=== PATIENT | female | born 1975 | race Caucasian/White ===

== ENCOUNTER 2016-10-13 08:39 | Day surgery (SDC) | payer MEDICARE, MEDICAID ==
--- NOTE | 2016-10-13 07:53 | History and Physical Report ---
DATE OF EVALUATION: 10/12/2016. CHIEF COMPLAINT AND HISTORY OF CHIEF COMPLAINT: This patient presents with a history of multiple sclerosis and intractable radiculitis. She is here for an implanted spinal catheter infusion trial with hydromorphone. The patient's disease process is currently being managed by Neurology through muscle relaxants other than baclofen. Because of the significant pain pattern into the lower extremities, it was felt appropriate to evaluate the patient for a spinal infusion device with an opioid. This was discussed at some length with the patient, and the potential risks, side effects, and complications were carefully reviewed. These include nerve root injury, spinal cord injury, and spinal headache. Information from the funeral workers was also provided which carefully outlines and reviews the side effects. She has been contacted by the local customer relations representative of the company with all of the potential risks and side effects discussed. PAST MEDICAL HISTORY: Multiple sclerosis, cardiac arrhythmia, asthmatic bronchitis, reflux, difficulty sleeping. REVIEW OF SYSTEMS: The patient seems appropriate and in no acute distress. The remainder of the systems review shows [] SOCIAL HISTORY: Caffeine. FAMILY HISTORY: Asthma, cancer, cerebrovascular disease. ALLERGIES: Penicillin, iodine, shellfish, Latex, Keflex, morphine, baclofen, Demerol. MEDICATIONS ON ADMISSION: Oral Valium. PHYSICAL EXAMINATION: General: Height is 5 feet, 4 inches. Weight is 130 pounds. Vital Signs: Blood pressure is 120/80. Musculoskeletal: Examination seems to show diffuse pain throughout the mid to low back and extending into the extremities, right greater than left. Ambulation: Assistive device utilized. Neurologic: Cranial nerves are intact. IMPRESSIONS: 1. INTRACTABLE LUMBAR RADICULITIS, ICD10 CODE M54.16 AND M54.17. 2. MULTIPLE SCLEROSIS, ICD10 CODE G35.0. PLANS: As explained carefully to the patient, the ideal approach would be the spinal infusion of baclofen to control the symptoms of the multiple sclerosis. However, because of her allergy, this is being managed by oral medications through her neurologist. The attempt and the use of the opioid is not to manage the obvious symptoms from multiple sclerosis, but rather to help control pain. This has been carefully discussed with the patient and will be reviewed again before she goes into surgery. The intent here is to control pain, not multiple sclerosis. The implanted catheter trial will give us the opportunity to evaluate this. If unsuccessful, the trial catheter will be removed. If it is successful and helps manage her pain, then she will be evaluated through the trial period of two weeks for a full implant. She understands the potential risks, side effects, and complications and is ready to move forward. Will consider this a possible overnight stay. Que Burkett D.O. Date Time JOB NUMBER: [id number] cc: Shon Ames Dr.
[~2016-10-13 08:39] MED LIST: ACETAMINOPHEN 1000MG/100 ML PREMIX IV ONE; CLINDAMYCIN 600MG/50ML PREMIX 50 ML IVPB ONE; FAMOTIDINE 20MG TABLET PO ONE; HYDROMORPHONE PF 2MG/ML AMP 0.004 MG in 0.9 % SODIUM CHLORIDE 10ML VIA 0.998 ML IV ONE; HYDROMORPHONE PF 2MG/ML AMP 2 MG in 0.9 % SODIUM CHLORIDE 500ML 499 ML IV ONE; MECLIZINE 25 MG TABLET PO ONE; METOCLOPRAMIDE 10 MG TABLET PO ONE
[2016-10-13] MEDS ORDERED: DIPHENHYDRAMINE HCL 25 MG CAPSULE PO PRN ×2 (11:31)
[2016-10-13] MEDS ORDERED: HYDROMORPHONE HCL 2 MG/ML VIAL IM PRN (11:31)
[2016-10-13] MEDS ORDERED: AL HYDROX/MAG HYDROX 30ML UD PO PRN (11:31)
[2016-10-13] MEDS ORDERED: HYDROCODONE/APAP 7.5/325MG TABLET PO PRN ×2 (11:31)
[2016-10-13] MEDS ORDERED: METOCLOPRAMIDE 10 MG TABLET PO PRN (11:31)
[2016-10-13] MEDS ORDERED: NALOXONE 0.4 MG/1 ML VIAL IVP PRN (11:31)
[2016-10-13] MEDS ORDERED: TEMAZEPAM 15 MG CAPSULE PO PRN ×2 (11:31)
[2016-10-13] MEDS ORDERED: HYDROMORPHONE HCL 1 MG/ML CPJ IM PRN (11:31)
[2016-10-13] MEDS ORDERED: DIPHENHYDRAMINE HCL IV 50 MG/ML VIAL IVP PRN ×2 (11:31)
[2016-10-13] MEDS ORDERED: ACETAMINOPHEN 325 MG TAB PO PRN ×2 (11:31)
[2016-10-13] MEDS ORDERED: OXYCODONE/APAP 10MG-325MG TABLET PO PRN ×2 (11:31)
[2016-10-13] MEDS ORDERED: SENNOSIDES/DOCUSATE SODIUM UD CAPSULE PO PRN ×2 (11:31)
[2016-10-13] MEDS: RINGERS SOLUTION,LACTATED 1,000 ML IV SCH ×2 (12:43→22:02)
[2016-10-13] MEDS ORDERED: BUPIVACAINE 0.5% W/EPI MPF 30 ML VIAL IVP ONE (13:26)
[2016-10-13] MEDS ORDERED: LIDOCAINE 1% W/EPI 1:200,000 MPF 30ML SQ ONE (13:26)
[2016-10-13] MEDS ORDERED: CLINDAMYCIN 600MG/4 ML VIAL IV ONE (13:26)
[2016-10-13] MEDS ORDERED: DIAZEPAM 5 MG TABLET PO PRN (16:00)
[2016-10-13] MEDS ORDERED: *PACU ONLY* KETAMINE HCL 10 MG/ML (20ML) VIAL IV ONE (16:12)
[2016-10-13] MEDS ORDERED: DEXAMETHASONE 4 MG/ML 1ML VIAL IVP ONE (16:12)
[2016-10-13] MEDS ORDERED: DEXMEDETOMIDINE HCL 200 MCG/2 ML VIAL IV ONE (16:12)
[2016-10-13] MEDS ORDERED: FENTANYL PF 100MCG/2ML VIAL IV ONE (16:12)
[2016-10-13] MEDS ORDERED: MIDAZOLAM HCL 2MG/2ML VIAL IV ONE (16:12)
[2016-10-13] MEDS: GABAPENTIN 800 MG PO SCH (16:16)
[2016-10-13] MEDS: CLINDAMYCIN 600MG/50ML PREMIX 50 ML IVPB SCH (17:44)
[2016-10-13] MEDS: PRELIEF PO SCH (17:46)
[2016-10-13] MEDS ORDERED: RINGERS SOLUTION,LACTATED 1,000 ML IV PRN (21:00)
[2016-10-13] MEDS ORDERED: PATIENT OWN MED: MONTELUKAST 10 MG PO SCH (22:00)
[2016-10-13] MEDS ORDERED: FLOVENT 110 MCG INH SCH (22:00)
[2016-10-14] MEDS: GABAPENTIN 800 MG PO SCH ×2 (00:12→06:23)
[2016-10-14] MEDS: CLINDAMYCIN 600MG/50ML PREMIX 50 ML IVPB SCH ×2 (00:59→08:57)
[2016-10-14] MEDS: RINGERS SOLUTION,LACTATED 1,000 ML IV SCH ×2 (01:00→06:22)
[2016-10-14] MEDS: METOCLOPRAMIDE HCL 10 MG/2 ML VIAL IVP PRN ×2 (02:07→03:37)
[2016-10-14] MEDS ORDERED: PATIENT OWN MED: ESOMEPRAZOLE 40 MG PO SCH (07:00)
[2016-10-14] MEDS: PRELIEF PO SCH (08:58)
[2016-10-14] MEDS ORDERED: TAMSULOSIN HCL 0.4 MG CAP.ER.24H PO SCH (10:00)
[2016-10-14] MEDS ORDERED: METOPROLOL SUCC 50 MG TABLET PO SCH (10:00)
--- NOTE | 2016-10-15 16:47 | Operative Note - Ferro ---
DATE OF SURGERY: 10/13/16 PREOPERATIVE DIAGNOSES: 1. INTRACTABLE LUMBAR RADICULITIS, ICD-10 CODE = M54.16 AND M54.17. 2. MULTIPLE SCLEROSIS, ICD-10 CODE = G35.0. OPERATION: 1. FLUOROSCOPICALLY-GUIDED SPINAL ACCESS AT L2/3, PLACEMENT OF THIN-WALLED SPINAL CATHETER T12/L1. 2. DIAGNOSTIC MYELOGRAPHY WITH RADIOLOGIC SUPERVISION AND INTERPRETATION. 3. SPINAL OPIOID BOLUS HYDROMORPHONE 0.002 MG SPINAL SPACE. 4. INCISION, SUBCUTANEOUS DISSECTION, AND ANCHORING OF SPINAL CATHETER TO SUPRASPINOUS FASCIA USING ANCHORING DEVICE AND NONABSORBABLE SUTURE. 5. INCISION, SUBCUTANEOUS DISSECTION, AND CREATION OF A SUBCUTANEOUS POUCH, RIGHT POSTERIOR GLUTEAL MARGIN. 6. TUNNELING BETWEEN MIDLINE POUCH TO POSTERIOR POUCH TUNNELING SPINAL CATHETER EXITING INTO POSTERIOR GLUTEAL POUCH. 7. RESECT AND INTERFACE SPINAL CATHETER TO SECONDARY CATHETER COMPONENT BY WAY OF CONNECTOR TUNNELING SECONDARY CATHETER COMPONENT 6 CM SUPERIOR EXITING SKIN. 8. INTERFACE EXTERNAL CATHETER WITH EXTERNAL PUMP SET TO DELIVER BY CONTINUOUS INFUSION OF HYDROMORPHONE AT 0.04 MG PER DAY. 9. CLOSURE OF MIDLINE INCISION, VICRYL FOR FASCIA, AND RUNNING SUBCUTICULAR VICRYL FOR SKIN. CLOSURE OF POSTERIOR GLUTEAL POUCH USING NYLON SUTURE. DRESSINGS PLACED SECURING CATHETER IN ALL CONNECTIONS UNDER STERILE DRESSING. 10. EPIDURAL BLOOD PATCH L3/4, 20 ML AUTOLOGOUS BLOOD DRAWN STERILE TECHNIQUE, LEFT ANTECUBITAL. SURGEON: FIORELLA CUTLER D.O. ANESTHESIA: LOCAL SEDATION. ANESTHESIA PROVIDER: LETY SALAS CRNA. INDICATION: This patient presents with a history of multiple sclerosis and neuropathic pain. She has been referred by Neurology for control of the neuropathic component. The neuromuscular component is being managed by other medications but because of allergies to Baclofen, this has been somewhat difficult. The intent is to gain some degree of pain control neuropathically to allow some improvement in her response to the other neuromuscular medications. The implanted catheter trial is in an attempt to minimize side-effects including spinal headache. The patient and understand the difference between the trial today for the pain component and not the MS component. PROCEDURE: Intravenous line, vital sign monitoring, IV sedation, prepped and draped in sterile technique. Patient position prone. Sterile technique and under imaging, the spinal interspace at L2/3 was marked, infiltrated, and a 20- gauge spinal needle beveled with a long axis in a paramedian approach into the spinal space. With CSF flow, a thin-walled spinal catheter was advanced and positioned T12/L1. Diagnostic myelography showed smooth linear flow of contrast throughout the spinal space. A bolus of Hydromorphone at 0.002 mg given in the spinal space. The catheter placement was atraumatic. There were no twitches or responses, which would indicate nerve root irritation. The catheter was clamped , the incision made, and subcutaneous dissection was conducted to the supraspinous fascia. The catheter was then anchored to the fascia with an anchoring device and nonabsorbable suture once the needle was removed. At the right posterior gluteal margin, or a site ultimately for the pump implant if this continues, skin infiltrated, incision made, and subcutaneous dissection was conducted to form a small subcutaneous pouch. A tunneling tool was then used to carry the external portion of the spinal catheter into the posterior pouch. This catheter was then interfaced with a second catheter component by way of a connector. The second catheter component was tunneled superior exiting the skin. The external catheter was then interfaced to an external pump set to deliver Hydromorphone at 0.04 mg a day. The midline incision was closed with Vicryl for fascia and running subcuticular Vicryl for skin. The posterior pouch incision was closed with nylon suture. Appropriate dressings were placed securing the catheter and all connections with sterile dressing. At L3/4, which is one level below the dural puncture, skin infiltrated and an 18-gauge Tuohy needle with [id number] was used to gain entry into the epidural space. Simultaneously, 20 mL of autologous blood drawn sterile technique from the left antecubital. This blood was passed onto the field maintaining sterility and an epidural blood patch was performed at this level with this blood. The dressings were reinforced. She was transported to the Recovery Room stable showing no side -effects from the procedure or the sedation. She was kept flat and will stay flat for four hours, slowly elevated for one. Because of the history and the amount of surgery, she will be kept overnight for observation and discharged in the morning. DISCHARGE INSTRUCTIONS IN THE MORNIN. The sites will remain clean and dry. No showering or bathing in any way that disrupts dressing. 2. Standard medications resumed limiting opioids to more fully evaluate the spinal infusion. 3. An antibiotic, Levaquin, 500 mg once a day for 14 days will be started and completed. Should there be problems with the antibiotic, she should contact the clinic for substitution. 4. Spinal opioid side-effects including; respiratory depression, nausea, vomiting, constipation, urinary retention, lightheadedness, or rash have all been discussed and reviewed. All other instructions provided, numbers to contact , problems given. She will be given a script for Percocet to help manage postoperative pain but will keep this at a minimum. FIORELLA CUTLER D.O. Date & Time cc: Dr. Keren Palacios JOB NUMBER: [id number] MTDD
--- NOTE | 2016-10-19 09:15 | RADIOLOGY REPORT ---
EXAM: AP THORACOLUMBAR SPINE HISTORY: PAIN PUMP TRIAL. TECHNIQUE: A single AP view of the thoracolumbar spine was obtained. Comparison: None. FINDINGS: There is some faint catheter like density overlying the right side of the abdomen and extending to the lumbar spine where it appears to ascend to the approximate level of the T12-L1 interspace as indicated by a tiny round metallic dot like density presumably demarcating the superior extent of the catheter. Prominent stool in the colon. Probable surgical clip right upper quadrant from cholecystectomy. Thoracolumbar curve to the right. IMPRESSION: SPINAL CATHETER IN PLACE EXTENDING UP TO THE APPROXIMATE LEVEL OF THE T12-L1 INTERSPACE. JOB NUMBER: [id number] MTDD
== END 2016-10-14 10:37 | disposition home or self-care (01) ==
LOC: SUR 08:39 → MEDSURG 11:43 → SUR 10-14 10:37
PROVIDERS: ATTEND Pain Medicine Interventional Pain Medicine
DX: M54.16 Radiculopathy, lumbar region (principal); M54.17 Radiculopathy, lumbosacral region; G35 Multiple sclerosis; I20.9 Angina pectoris, unspecified; J45.909 Unspecified asthma, uncomplicated
CPT/HCPCS: 36416; 82948; 72020; 94761; 94640; 94760; 93005; 62350; 00630; J3010; J3490; J1170; J1200; J2765; J7040; J7120

== ENCOUNTER 2016-10-27 11:12 | Day surgery (SDC) | payer MEDICARE, MEDICAID ==
--- NOTE | 2016-10-27 06:55 | History and Physical Report ---
DATE OF EVALUATION: 10/26/2016. CHIEF COMPLAINT AND HISTORY OF CHIEF COMPLAINT: This patient presents with a history of intractable lumbar radiculitis and multiple sclerosis. She had an implanted spinal catheter infusion trial performed with previous dictation on . PAST MEDICAL HISTORY: Unchanged. REVIEW OF SYSTEMS: Unchanged. SOCIAL HISTORY: Unchanged. FAMILY HISTORY: Unchanged. PAST SURGICAL HISTORY: Unchanged. ALLERGIES: Penicillin, iodine, shellfish, Latex, Keflex, morphine, baclofen, and Demerol. MEDICATIONS ON ADMISSION: Unchanged. PHYSICAL EXAMINATION: General: Height is 5 feet, 4 inches. Weight is 130 pounds. Vital Signs Previously: Blood pressure was 120/80. HEENT: Unchanged. Lungs: Unchanged. Heart: Unchanged. Abdomen: Unchanged. Musculoskeletal: The dressings for the implanted spinal catheter are in place. Ambulation: Unchanged. Neurologic: Unchanged. IMPRESSIONS: 1. INTRACTABLE LUMBAR RADICULITIS, ICD10 CODE M54.16 AND M54.17. 2. MULTIPLE SCLEROSIS, ICD10 CODE G35.0. PLANS: The patient is here with an implanted spinal catheter infusion trial ongoing with hydromorphone with up to 75 to 90% pain control. She is here by her request for implantation of a full system. All of the potential risks, side effects, and complications have been carefully reviewed and discussed. The patient understands and has consented. The procedure will be considered outpatient, although an overnight stay will be evaluated. Que Burkett D.O. Date Time JOB NUMBER: [id number] cc: Dr. Harinder BROWN
[~2016-10-27 11:12] MED LIST changes: +HYDROMORPHONE HCL 0.016 GM in 0.9 % SODIUM CHLORIDE 10ML VIA 20 ML IV ONE; +HYDROMORPHONE HCL/PF 0.002 MG in 0.9 % SODIUM CHLORIDE 10ML VIA 0.998 ML IVP ONE; -HYDROMORPHONE PF 2MG/ML AMP 0.004 MG in 0.9 % SODIUM CHLORIDE 10ML VIA 0.998 ML IV ONE; -HYDROMORPHONE PF 2MG/ML AMP 2 MG in 0.9 % SODIUM CHLORIDE 500ML 499 ML IV ONE
[2016-10-27] MEDS ORDERED: LIDOCAINE 1% W/EPI 1:200,000 MPF 30ML SQ ONE (14:00)
[2016-10-27] MEDS ORDERED: CLINDAMYCIN 600MG/4 ML VIAL IV ONE (14:00)
[2016-10-27] MEDS ORDERED: OXYCODONE/APAP 10MG-325MG TABLET PO ONE (14:00)
[2016-10-27] MEDS ORDERED: 0.9 % SODIUM CHLORIDE 10 ML VIAL IVP ONE (14:00)
[2016-10-27] MEDS ORDERED: BUPIVACAINE 0.5% W/EPI MPF 30 ML VIAL IVP ONE (14:00)
[2016-10-27] MEDS ORDERED: MIDAZOLAM HCL 2MG/2ML VIAL IV ONE (15:23)
[2016-10-27] MEDS ORDERED: FENTANYL PF 100MCG/2ML VIAL IV ONE (15:23)
[2016-10-27] MEDS ORDERED: LIDOCAINE 2% MDV (20MG/ML) 20ML VIAL IV ONE (15:23)
[2016-10-27] MEDS ORDERED: PROPOFOL 10 MG/ML VIAL IV ONE (15:23)
[2016-10-27] MEDS ORDERED: HYDROMORPHONE HCL 2 MG/ML VIAL IV ONE (15:23)
--- NOTE | 2016-10-28 14:54 | Operative Note - Ferro ---
DATE OF SURGERY: 10/27/16 PREOPERATIVE DIAGNOSES: 1. MULTIPLE SCLEROSIS, ICD-10 CODE = G35.0. 2. LUMBAR RADICULITIS, ICD-10 CODE = M54.16 AND M54.17. 3. IMPLANTED SPINAL INFUSION TRIAL HYDROMORPHONE. OPERATION: 1. INCISION, SUBCUTANEOUS DISSECTION, AND REMOVAL OF EXTERNAL CATHETER. 2. INCISION, SUBCUTANEOUS DISSECTION, AND REVISION OF INTERNAL SPINAL CATHETER INTERFACED SPINAL CATHETER TO SECOND CATHETER COMPONENT WITH CONNECTOR. 3. INCISION, SUBCUTANEOUS DISSECTION, AND CREATION OF SUBCUTANEOUS POUCH AT RIGHT POSTERIOR/SUPERIOR GLUTEAL MARGIN FOR PLACEMENT OF PUMP IDENTIFIED A MEDTRONIC 20 ML PROGRAMMABLE. 4. INTERFACE REVISED CATHETER TO PUMP. PLACEMENT OF PUMP INTO POUCH ANCHORING TO POSTERIOR FASCIA USING NONABSORBABLE SUTURE AND PUMP EYELETS. 5. 24-GAUGE BECKETT NEEDLE INSERTED INTO ACCESS PORT CLEARING CATHETER OF OPIOID AND CSF MIXTURE. 6. SALINE INJECTION THROUGH ACCESS PORT, ALLERGY TO CONTRAST, CONFIRMING PATENCY OF CATHETER AND PUMP. 7. CLOSURE OF INCISIONS VICRYL FOR FASCIA, AND RUNNING SUBCUTICULAR VICRYL FOR SKIN. DERMABOND CLOSURE. 8. PROGRAMMING OF PUMP TO DELIVER BY CONTINUOUS INFUSION HYDROMORPHONE AT 0.16 MG PER DAY. SURGEON: FIORELLA CUTLER D.O. ANESTHESIA: LOCAL SEDATION. ANESTHESIA PROVIDER: DILAN SHEA CRNA. INDICATION: This patient presents with a history of intractable lumbar radiculitis superimposed upon multiple sclerosis. Because of allergies to Baclofen, her spasticity is being maintained through muscle relaxants. Due to neuropathic pain component, a trial of spinal opioids with Hydromorphone resulted in 75-plus percent pain control. Due to the failure of all other therapies and the success of the pump catheter trial, she is here for implantation of a permanent system. PROCEDURE: Intravenous line, vital sign monitoring, IV sedation, prepped and draped in sterile technique. Patient position prone. Sterile technique and under imaging, the external catheter was exposed. The previous incision for the interface infiltrated with local, incision made, and subcutaneous dissection was conducted to the connection between the indwelling and external catheter component cut and the external catheter removed intact by pulling away from the incision. Further incision and subcutaneous dissection were conducted at the right posterior gluteal margin site to create a pouch of suitable size and depth for the pump identified as a Medtronic 20 mL Programmable. The indwelling spinal catheter was then revised and interfaced with a second component catheter , which would interface to the pump. Antibiotic irrigation. Bovie for hemostasis. The revised catheter was then interfaced to the pump then the pump was placed into the pouch secured to the posterior fascia using nonabsorbable suture. A 24-gauge Beckett needle was then inserted into the access port and 1 mL of catheter content was aspirated clearing the catheter of opioid and CSF mixture. Saline was then injected through the catheter because of contrast allergies confirming patency and flow. The tip of the catheter was visualized at T12. The incision was then closed Vicryl for fascia and running subcuticular Vicryl for skin and a Dermabond closure system was placed. She was transported to the Recovery Room stable showing no side-effects from the procedure or the sedation. DISCHARGE INSTRUCTIONS: 1. The sites will remain clean and dry. No showering or bathing in any way that disrupts dressing. Although the Dermabond will allow showering, this should not happen for 24-48 hours. 2. Standard medications resumed including Levaquin, the antibiotic, which will be continued for the next 10 days having already had a 10-day script. 3. Standard medications resumed. Percocet has been written five a day for 10 days to manage post-op pain. She will return to the office in 5-7 days to evaluate the incisional sites. At that time, we will evaluate activities as well as medication requirements. We have discussed managing her Soma being referred to us by way of her neurologist with recommendation to handle the muscle relaxants. Spinal opioid side-effects; respiratory depression, nausea, vomiting, constipation, urinary retention, lightheadedness, or rash have all been discussed and reviewed. 4. An increase in her spinal infusion dose was performed today increasing from 0.08 to 0.16 in an attempt to maintain pain control and reduce oral medication requirements. The potential risks and side-effects of spinal opioids were carefully reviewed and discussed with the patient and . She has been given the appropriate numbers to contact should there be any problems. The office will contact the patient within the next several days to set up the evaluation for incision check in 5-7 days. All other instructions provided. FIORELLA HE, D.O. Date & Time cc: Dr. Harinder Muñoz JOB NUMBER:[id number] MTDD
--- NOTE | 2016-11-02 07:54 | RADIOLOGY REPORT ---
EXAM: AP LUMBAR SPINE HISTORY: PATIENT HAS PLACEMENT OF AN EPIDURAL PAIN PUMP. TECHNIQUE: A single AP portable view of the lumbar spine was provided along with the comparison study dated 10/13/16. FINDINGS: Bilateral pedicles, posterior spinous processes, and transverse processes of the lumbar spine are within normal limits. The visualized bowel gas pattern is nonspecific and nonobstructive. A phlebolith is noted within the left hemipelvis. There is an epidural pain pump identified within the right side of the abdomen. Its lead tip is identified in the region of the T12-L1 disk space. This finding appears similar to the previous examination. IMPRESSION: EPIDURAL PAIN PUMP IS NOTED DESCRIBED ABOVE. JOB NUMBER: [id number] MTDD
== END 2016-10-27 16:00 | disposition home or self-care (01) ==
LOC: SUR 11:12
PROVIDERS: ATTEND Pain Medicine Interventional Pain Medicine
DX: M54.16 Radiculopathy, lumbar region (principal); M54.17 Radiculopathy, lumbosacral region; G35 Multiple sclerosis
CPT/HCPCS: 62350; 62362; 00630; 62367; 72020; J1170 ×2; J3010; C1755

== ENCOUNTER 2017-07-06 09:48 | Day surgery (SDC) | payer MEDICARE, MEDICAID ==
[2017-07-06] MEDS ORDERED: LIDOCAINE 1% W/EPI 1:200,000 MPF 30ML SQ ONE (09:49)
[2017-07-06] MEDS ORDERED: PROPOFOL 10 MG/ML VIAL IV ONE (09:49)
[2017-07-06] MEDS ORDERED: KETOROLAC 30 MG/ML VIAL IVP ONE (09:49)
[2017-07-06] MEDS ORDERED: MIDAZOLAM HCL 2MG/2ML VIAL IV ONE (09:49)
[2017-07-06] MEDS ORDERED: DEXAMETHASONE PRESERVATIVE FREE 10MG/ML VIAL IV ONE (09:49)
[2017-07-06] MEDS ORDERED: LIDOCAINE 2% MDV (20MG/ML) 20ML VIAL IV ONE (09:49)
[2017-07-06] MEDS ORDERED: HYDROCODONE/APAP 7.5/325MG TABLET PO ONE (09:49)
[2017-07-06] MEDS ORDERED: BUPIVACAINE 0.75% W/EPI MPF 30ML VIAL IVP ONE (09:49)
[2017-07-06] MEDS ORDERED: FENTANYL PF 100MCG/2ML VIAL IV ONE (09:49)
--- NOTE | 2017-07-06 16:12 | Operative Note - Ferro ---
DATE OF SURGERY: 07/06/17 PREOPERATIVE DIAGNOSIS: CERVICAL SPONDYLOSIS WITHOUT MYELOPATHY , ICD-10 CODE = M47.812. OPERATION: RADIOFREQUENCY RHIZOTOMY BILATERAL CERVICAL FACETS 4-5 AND 5- 6. SURGEON: FIORELLA CUTLER D.O. ANESTHESIA: LOCAL SEDATION. ANESTHESIA PROVIDER: DILAN SHEA CRNA INDICATION: This patient presents with primary neck pain. Examination shows tenderness in the cervical spine. Range of motion does cause pain to the neck with extension. Diagnostics show multiple levels of facet changes and disc abnormalities. A facet series 75-plus percent pain control. Due to the failure of therapy and the success of the facet series, the patient presents for rhizotomy for more long-term relief. PROCEDURE: Intravenous line, vital sign monitoring, IV sedation, prepped, draped, sterile technique. Under imaging, cervical facet levels at 4-5 and 5-6 were identified and marked bilaterally. Skin infiltrated. A 22-gauge rhizotomy cannula positioned. Stimulation trials conducted. Rhizotomy burn performed. Local with anti-inflammatory into the sites. Topical antibiotics. Sterile dressing applied. We will monitor and evaluate. cc: Dr. Pizano JOB NUMBER: [id number] MTDD
== END 2017-07-06 12:00 | disposition home or self-care (01) ==
LOC: SUR 09:48
PROVIDERS: ATTEND Pain Medicine Interventional Pain Medicine
DX: M47.812 Spondylosis without myelopathy or radiculopathy, cervical region (principal); J45.909 Unspecified asthma, uncomplicated
CPT/HCPCS: 64633; 64634; 01936; J1885; J1100; J3010; J3490

== ENCOUNTER → 2019-04-25 | Day surgery (SDC) | payer MEDICARE, MEDICAID ==
[~2019-04-25] MED LIST changes: +ACETAMINOPHEN 1,000 MG/100 ML BTL IVPB ONE; -ACETAMINOPHEN 1000MG/100 ML PREMIX IV ONE; +BUPIVACAINE HCL IV ONE; -CLINDAMYCIN 600MG/50ML PREMIX 50 ML IVPB ONE; +CLINDAMYCIN 600MG/50ML PREMIX 600 MG/50 ML BAG IVPB ONE; -HYDROMORPHONE HCL 0.016 GM in 0.9 % SODIUM CHLORIDE 10ML VIA 20 ML IV ONE; +HYDROMORPHONE HCL IV ONE; -HYDROMORPHONE HCL/PF 0.002 MG in 0.9 % SODIUM CHLORIDE 10ML VIA 0.998 ML IVP ONE; +HYDROMORPHONE PF 2MG/ML AMP 0.008 MG in 0.9 % SODIUM CHLORIDE 10ML VIA 0.996 ML IV ONE; +[UNRECOGNIZED DRUG - OTHER] IV ONE
--- NOTE | 2019-04-25 06:24 | History and Physical - Ferro ---
CHIEF COMPLAINT/HISTORY OF CHIEF COMPLAINT: This patient presents with a history of multiple sclerosis along with a lumbar radiculitis. On 10/26/16 a pump implant was performed after a successful implanted catheter trial. The device implanted at the right posterior gluteal margin. Although initially this seemed to be tolerated well, over time this became a site of irritation for the patient and extreme sensitivity. After multiple efforts at desensitizing the area were unsuccessful she is here for revision and relocation of pump above the belt line on the same site. PAST MEDICAL HISTORY: Multiple sclerosis, cardia arrhythmia, asthmatic bronchitis, reflux esophagitis, and difficulty sleeping. PAST SURGICAL HISTORY: Unchanged. MEDICATIONS ON ADMISSION: List to be provided. ALLERGIES: PENICILLIN, IODINE, SHELLFISH, KEFLEX, LATEX, MORPHINE, BACLOFEN AND DEMEROL. FAMILY/PSYCHOSOCIAL HISTORY: Social history - Caffeine. Family history - Asthma, cancer, and cerebrovascular disease. SYSTEMS REVIEW: The patient is appropriate in no acute distress. The remainder of the systems review is noncontributory. PHYSICAL EXAMINATION: Height is 5'4", weight is 130. No vital signs. HEENT: Within normal limits. LUNGS: Clear. HEART: Rapid and regular. ABDOMEN: Nontender. MUSCULOSKELETAL: Examination of the musculoskeletal system shows tenderness at the pump pouch right posterior glutea margin. The multiple regions of pain including right upper extremity, trunk, low back, bilateral right greater than left lower extremity. Sensory gonzalez are intact. NEUROLOGIC: Cranial nerves are intact. IMPRESSION: 1. MULTIPLE SCLEROSIS, ICD-10 CODE G35.0 WITH RADICULOPATHY, ICD-10 CODE M54.16 AND M54.17. 2. IMPLANTED SPINAL OPIOID INFUSION SYSTEM USING HYDROMORPHONE. PLAN: The patient is here for relocation of the pump on an outpatient basis. The potential risks, side effects and complications have all been reviewed and discussed. JOB NUMBER: [id number] [facility]
== END | disposition home or self-care (01) ==
LOC: SUR 05:57
PROVIDERS: ATTEND Pain Medicine Interventional Pain Medicine
DX: Z53.9 Procedure and treatment not carried out, unspecified reason (principal)

== ENCOUNTER 2019-06-20 09:17 | Day surgery (SDC) | payer MEDICARE, MEDICAID ==
--- NOTE | 2019-06-20 06:48 | History and Physical - Ferro ---
CHIEF COMPLAINT/HISTORY OF CHIEF COMPLAINT: This patient with a history of lumbar radiculitis as well as multiple sclerosis has a spinal infusion system in place which is infusing Hydromorphone, no Baclofen in the device because of allergies. Over the last month this patient's system ran dry because of her failure to attend the appropriate refills. She is here for pump refill along with this she has had pain at the pouch at the posterior gluteal margin and has requested that the pump be relocated above the belt line on the right. She is here for pump relocation along with pump refill. PAST MEDICAL HISTORY: Multiple sclerosis, cardia arrhythmia, asthmatic bronchitis, reflux esophagitis, depression and difficulty sleeping. PAST SURGICAL HISTORY: Abdominoplasty, hysterectomy, and pump implant. MEDICATIONS ON ADMISSION: List to be provided. ALLERGIES: PENICILLIN, IODINE, SHELLFISH, LATEX, KEFLEX, MORPHINE, BACLOFEN, AND DEMEROL. FAMILY/PSYCHOSOCIAL HISTORY: Social history - Smoking. Family history - Asthma, cancer and cardiovascular disease. SYSTEMS REVIEW: The patient appears appropriate in no acute distress. PHYSICAL EXAMINATION: Height is 5'4", weight is 130. No vital signs. HEENT: Within normal limits. LUNGS: Clear. HEART: Rapid and regular. ABDOMEN: Nontender. MUSCULOSKELETAL: Examination of the musculoskeletal system shows the pump in the right posterior gluteal margin. Lower extremity functionality is intact. NEUROLOGIC: Cranial nerves are intact. IMPRESSION: 1. MULTIPLE SCLEROSIS, ICD-10 CODE G35.0 WITH INTRACTABLE LUMBAR RADICULOPATHY, ICD-10 CODE M54.16 AND M54.17. 2. INTRASPINAL INFUSION SYSTEM USING HYDROMORPHONE, VOLUME DEPLETION. PLAN: The patient is here for battery relocation along with refill. Because the system is empty we will start her at the initial starting dose. She will be scheduled for increases through the office. The procedure will be considered outpatient although an overnight stay will be evaluated. JOB NUMBER: [id number] MTDD
[~2019-06-20 09:17] MED LIST changes: -BUPIVACAINE HCL IV ONE; +HYDROMORPHONE HCL 0.04 GM in 0.9 % SODIUM CHLORIDE 10ML VIA 20 ML IV ONE; -HYDROMORPHONE HCL IV ONE; -[UNRECOGNIZED DRUG - OTHER] IV ONE
[2019-06-20] MEDS ORDERED: LIDOCAINE 2% MDV (20MG/ML) 20ML VIAL IV ONE (09:18)
[2019-06-20] MEDS ORDERED: MEPERIDINE 50 MG/1 ML VIAL IVP ONE (09:18)
[2019-06-20] MEDS ORDERED: ONDANSETRON HCL IV 4 MG/2 ML VIAL IVP ONE (09:18)
[2019-06-20] MEDS ORDERED: NALOXONE 0.4 MG/1 ML VIAL IVP ONE (09:18)
[2019-06-20] MEDS ORDERED: DEXMEDETOMIDINE HCL 200 MCG/2 ML VIAL IV ONE (09:18)
[2019-06-20] MEDS ORDERED: PROPOFOL 10 MG/ML VIAL IV ONE (09:18)
[2019-06-20] MEDS ORDERED: SUFENTANIL CITRATE 50 MCG/ML AMPUL IV ONE (09:18)
[2019-06-20] MEDS ORDERED: *PACU ONLY* KETAMINE HCL 10 MG/ML (20ML) VIAL IV ONE (09:18)
[2019-06-20] MEDS ORDERED: FENTANYL PF 100MCG/2ML VIAL IV ONE (09:18)
[2019-06-20] MEDS ORDERED: HYDROMORPHONE HCL 2 MG/ML VIAL IV ONE (09:18)
[2019-06-20] MEDS ORDERED: MIDAZOLAM HCL 2MG/2ML VIAL IV ONE (09:18)
[2019-06-20] MEDS ORDERED: ALFENTANIL HCL 500 MCG/1ML, 2ML AMP IV ONE (09:18)
[2019-06-20] MEDS ORDERED: KETOROLAC 30 MG/ML VIAL IVP ONE (09:18)
[2019-06-20] MEDS ORDERED: RINGERS SOLUTION,LACTATED 1,000 ML IV ONE ×2 (10:00→12:40)
[2019-06-20] MEDS ORDERED: LIDOCAINE 1% W/EPI 1:200,000 MPF 30ML SQ ONE (11:46)
[2019-06-20] MEDS ORDERED: BUPIVACAINE 0.5% W/EPI MPF 30 ML VIAL SQ ONE (11:46)
[2019-06-20] MEDS ORDERED: Clindamycin 600mg vial 150 MG/ML VIAL IR ONE (11:46)
[2019-06-20] MEDS ORDERED: DIPHENHYDRAMINE HCL 25 MG CAPSULE PO PRN ×2 (14:45)
[2019-06-20] MEDS ORDERED: METOCLOPRAMIDE HCL 10 MG/2 ML VIAL IVP PRN (14:45)
[2019-06-20] MEDS ORDERED: SENNOSIDES/DOCUSATE SODIUM UD CAPSULE PO PRN ×2 (14:45)
[2019-06-20] MEDS ORDERED: ACETAMINOPHEN 325 MG TAB PO PRN (14:45)
[2019-06-20] MEDS ORDERED: DIPHENHYDRAMINE HCL 50 MG/ML VIAL IVP PRN ×2 (14:45)
[2019-06-20] MEDS ORDERED: HYDROMORPHONE HCL 2 MG/ML VIAL IM PRN ×2 (14:45)
[2019-06-20] MEDS ORDERED: AL HYDROX/MAG HYDROX 30ML UD PO PRN (14:45)
[2019-06-20] MEDS ORDERED: TEMAZEPAM 15 MG CAPSULE PO PRN (14:45)
[2019-06-20] MEDS ORDERED: HYDROCODONE/APAP 7.5/325MG TABLET PO PRN (14:45)
[2019-06-20] MEDS ORDERED: OXYCODONE/APAP 10MG-325MG TABLET PO PRN (14:45)
[2019-06-20] MEDS ORDERED: NALOXONE 0.4 MG/1 ML VIAL IVP PRN (14:45)
[2019-06-20] MEDS ORDERED: METOCLOPRAMIDE 10 MG TABLET PO PRN (14:45)
[2019-06-20] MEDS ORDERED: BUTALB/ACETAMINOPHEN/CAFFEINE TABLET PO PRN (14:46)
[2019-06-20] MEDS: RINGERS SOLUTION,LACTATED 1,000 ML IV SCH (17:14)
[2019-06-20] MEDS: GABAPENTIN 300 MG CAPSULE PO SCH ×2 (17:14→21:08)
[2019-06-20] MEDS: GABAPENTIN 100 MG CAPSULE PO SCH ×2 (17:14→21:08)
[2019-06-20] MEDS: CLINDAMYCIN 600MG/50ML PREMIX 600 MG/50 ML BAG IVPB SCH (19:51)
[2019-06-20] MEDS: HYDROCODONE/APAP 7.5/325MG TABLET PO PRN (21:13)
[2019-06-20] MEDS ORDERED: MONTELUKAST SODIUM 10MG TABLET PO SCH (22:00)
[2019-06-20] MEDS: OXYCODONE/APAP 10MG-325MG TABLET PO PRN (23:08)
[2019-06-21] MEDS: RINGERS SOLUTION,LACTATED 1,000 ML IV SCH (02:15)
[2019-06-21] MEDS: HYDROCODONE/APAP 7.5/325MG TABLET PO PRN (02:15)
[2019-06-21] MEDS: CLINDAMYCIN 600MG/50ML PREMIX 600 MG/50 ML BAG IVPB SCH (03:26)
[2019-06-21] MEDS: OXYCODONE/APAP 10MG-325MG TABLET PO PRN ×2 (06:30→08:51)
[2019-06-21] MEDS ORDERED: PANTOPRAZOLE SODIUM 40 MG TABLET PO SCH (07:00)
--- NOTE | 2019-06-22 12:42 | Operative Note ---
DATE OF SURGERY: 06/20/2019 PREOPERATIVE DIAGNOSES: 1. Multiple sclerosis, ICD10 code G35.0, with lumbar radiculopathy, ICD10 code M54.16 and M54.17. 2. Implanted spinal infusion system hydromorphone battery depletion nonfunctional. 3. Painful pouch right posterior gluteal margin. OPERATION: 1. Fluoroscopic-guided incision, subcutaneous dissection, and removal of programmable pump right posterior gluteal margin. 2. Incision, subcutaneous dissection, and creation of subcutaneous pouch right flank site picked by patient for a new pump identified as a Medtronic 20 mL programmable. 3. Incision, subcutaneous dissection, and revision of implanted catheter at initial incisional site, tunneling revised catheter to right flank pouch. 4. Revision and resection of spinal catheter at flank pouch interfaced with second catheter component by way of connector, interface revised pouch to a new 20 mL programmable pump prefilled hydromorphone at 2 mg/mL. 5. Placement of pump into flank pouch securing to posterior fascia with nonabsorbable suture 3 points pump eyelets. 6. With pump in flank pouch, placement of curved 24-gauge Beckett needle with access port, aspiration clearing catheter of opioid and CSF mixture. 7. Diagnostic myelography with radiologic supervision and interpretation through access port confirming all connections and functionality of pump catheter connection. 8. Bolus hydromorphone through access port 0.004 mg into spinal space. 9. Closure of midline catheter incision, closure of previous pump pouch inferior gluteal margin, and closure of flank pouch using Stratafix suture, 2-0 fascia, 3-0 skin, Dermabond closure at all sites. 10. Complex programming new pump right flank to deliver hydromorphone at 0.16 mg a day. SURGEON: Que Burkett DO ANESTHESIA: Local with sedation. ANESTHESIA PROVIDER: Nadege Lainez INDICATION: This patient presents with a history of an intractable lumbar radiculopathy complicated by multiple sclerosis. A programmable pump of hydromorphone has been infusing but because of her not attending the appropriate refill periods, her pump has gone dry and has been dry for roughly 1 month. Along with this, the implanted pump pouch at the right posterior gluteal margin has been a source of continuous irrigation. She is here for removal and replacement of pump with a new pump, re-initiation of infusion hydromorphone, and relocating the pump from the right posterior gluteal margin to the right flank. A probable catheter revision and re-diversion to the new pouch will be necessary. PROCEDURE: Intravenous line, vital sign monitoring, IV sedation. Prepped and draped sterile technique. Patient positioned prone. Sterile prep, sterile technique. The previous pump at the right posterior gluteal margin incisional site was infiltrated, incision made, subcutaneous dissection was conducted to the pump pouch. The pouch was opened and the pump exteriorized. At the right flank, a site picked by the patient for the new pump, skin infiltrated, incision made, and subcutaneous dissection was conducted to form a pouch of suitable size and depth for the new pump, a 20 mL programmable Medtronic. The implanted catheter incision midline approximating L3 was infiltrated with local. Incision made and subcutaneous dissection was conducted to the implanted catheter. The catheter was then cut. The section component was removed through the previous incisional pouch. The remaining catheter was then tunneled into the new flank pouch which was formed for the pump. The implanted catheter component was then revised and resected with a second catheter component by way of a connector. This new catheter component would resect and interface to the new pump. Once the incisional pouch had been fully formed at the right flank, the 20 mL programmable pump was then placed onto the field prefilled hydromorphone 2 mg/mL. The revised catheter was then interfaced to the new pump. The new pump was placed into the flank pouch and secured to the posterior fascia with nonabsorbable suture 3 points pump eyelets. With the pump secured into the pouch, a curved 24-gauge Beckett needle was inserted into the access port and 1 mL of catheter contents was aspirated, clearing the catheter of opioid and CSF mixture. A bolus of hydromorphone was given through the access port into the spinal catheter 0.004 mg into the spinal space. Preservative-free saline had been used to clear the catheter. No myelogram was performed because of allergies. Contrast was injected through the access port confirming functionality. With the pump in the pouch, the incision at the flank pouch, the midline catheter incision, and the previous incision at the right posterior gluteal margin were all closed using Stratafix suture, 2-0 fascia, 3-0 skin, Dermabond closure. The pump was then programmed to deliver by continuous infusion hydromorphone at 0.16 mg a day. With the Dermabond in place, she was transported to the recovery room stable. No unusual side effects, no unusual pain. Full functionality of extremities. She will be kept overnight for evaluation because of the time of surgery and then discharged in the morning. DISCHARGE INSTRUCTIONS: 1. Sites to remain clean and dry. No showering or bathing in any way that would disrupt dressings. If it happens, contact the clinic. 2. Standard medications resumed including the antibiotic Levaquin 500 mg once a day for 14 days. 3. Spinal opioid side effects of respiratory depression, nausea, vomiting, constipation, urinary retention, cellulitis, rash have been reviewed and discussed. Any complications at home, patient should contact the clinic or go to the local emergency room. All other instructions provided. Numbers to contact if problems given. She will be discharged in the morning. KEVIN
== END 2019-06-21 09:00 | disposition home or self-care (01) ==
LOC: SUR 09:17 → MEDSURG 13:30 → SUR 06-21 09:00
PROVIDERS: ATTEND Pain Medicine Interventional Pain Medicine
DX: G35 Multiple sclerosis (principal); M54.16 Radiculopathy, lumbar region; M54.17 Radiculopathy, lumbosacral region; Z45.1 Encounter for adjustment and management of infusion pump; T85.840A Pain due to nervous system prosthetic devices, implants and grafts, initial encounter; I10 Essential (primary) hypertension; F90.9 Attention-deficit hyperactivity disorder, unspecified type; K21.9 Gastro-esophageal reflux disease without esophagitis; Z86.73 Personal history of transient ischemic attack (TIA), and cerebral infarction without residual deficits; F43.10 Post-traumatic stress disorder, unspecified; M79.7 Fibromyalgia; J45.909 Unspecified asthma, uncomplicated; G47.33 Obstructive sleep apnea (adult) (pediatric); F17.210 Nicotine dependence, cigarettes, uncomplicated
CPT/HCPCS: 63650; 63688; 01936; 62367; 85002; C1755; C1772; J1885; J2405; J3490 ×2; J3010; J1170 ×2; J2310; J7120